=== PATIENT | female | born 1960 | race Caucasian/White ===

== ENCOUNTER 2018-11-29 10:47 | Emergency (ER) | payer BC ==
[2018-11-29 11:51] LABS: ADD MAN DIFF? NO
[2018-11-29 11:52] LABS: WHITE BLOOD COUNT 4.4 10^3/ul (4.8-10.8)
[2018-11-29 11:52] LABS: BASOPHILS % 0.9 % (0.0-2.0); EOSINOPHILS # 0.1 10^3/ul (0.0-0.5); HEMATOCRIT 43.4 % (37.0-47.0); HEMOGLOBIN 14.9 g/dl (12.0-16.0); LYMPHOCYTES # 1.7 10^3/ul (0.8-2.9); MEAN CORPUSCULAR HEMOGLOBIN 29.9 pg (29.0-33.0); MEAN CORPUSCULAR HGB CONC 34.3 g/dl (32.0-37.0); MEAN PLATELET VOLUME 9.7 fl (7.4-10.4); MONOCYTE # 0.3 10^3/ul (0.3-0.9); MONOCYTES % 7.7 % (0.0-11.0); NEUTROPHIL # 2.3 10^3/ul (1.6-7.5); NEUTROPHILS % 51.2 % (39.0-77.0); PLATELET COUNT 220 10^3/UL (140-415); RED BLOOD COUNT 4.99 10^6/ul (4.20-5.40)
[2018-11-29] MEDS: LORAZEPAM 0.5 MG TAB PO (11:52)
[2018-11-29 12:14] LABS: ANION GAP 7 (5-13); BLOOD UREA NITROGEN 13 mg/dl (7-20); CALCIUM 9.4 mg/dl (8.4-10.2); CARBON DIOXIDE 29 mmol/L (21-31); CHLORIDE 106 mmol/L (97-110); CREATININE 0.79 mg/dl (0.44-1.00); Estimated GFR > 60 mL/min (>60); GLUCOSE 101 mg/dl (70-220); POTASSIUM 3.9 mmol/L (3.5-5.1); SODIUM 142 mmol/L (135-144)
[2018-11-29 12:26] LABS: TROPONIN-I < 0.012 ng/ml (0.000-0.120)
== END 2018-11-29 13:29 | disposition home or self-care (01) ==
LOC: E/R 10:47
DX: I10 Essential (primary) hypertension (principal)
CPT/HCPCS: 36415; 70450; 80048; 84484; 85025; 93005; 99285-25

== ENCOUNTER 2018-12-02 19:33 | Emergency (ER) | payer BC ==
[2018-12-02] MEDS: LORAZEPAM 1 MG TAB PO (20:04)
[2018-12-02] MEDS: NICARDipine HCL 30 MG CAPSULE PO (20:05)
== END 2018-12-02 21:47 | disposition home or self-care (01) ==
LOC: E/R 21:47
DX: I10 Essential (primary) hypertension (principal); F41.9 Anxiety disorder, unspecified
CPT/HCPCS: 99283; Z7502